=== PATIENT | female | born 1960 | race Caucasian/White ===

== ENCOUNTER 2019-11-07 08:10 | Outpatient (CLI) | payer BC ==
--- NOTE | 2019-11-07 12:42 | MMO ---
Bilateral MAMMO Bilat Screen [facility]. CLINICAL HISTORY: Patient is 59 years old and is seen for screening. The patient has no family history of breast cancer. The patient has no personal history of cancer. VIEWS: The views performed were: bilateral craniocaudal with tomosynthesis and bilateral mediolateral oblique with tomosynthesis. This study has been interpreted with the assistance of computer-aided detection. MAMMOGRAM FINDINGS: There are scattered fibroglandular densities. There is an area of architectural distortion seen in the sub-areolar region of the left breast. In the right breast, there are no suspicious masses, calcifications or areas of architectural distortion. IMPRESSION: AREA OF ARCHITECTURAL DISTORTION IN THE LEFT BREAST REQUIRES ADDITIONAL EVALUATION. SPOT COMPRESSION IS RECOMMENDED. AN ULTRASOUND EXAM IS RECOMMENDED. ADDITIONAL IMAGING. THE RESULTS OF THIS EXAM WERE SENT TO THE PATIENT. ACR BI-RADS Category 0 - Incomplete: Need additional imaging evaluation. [facility] will notify the patient of the need for additional imaging services. MAMMOGRAPHY NOTE: 1. A negative mammogram report should not delay a biopsy if a dominant of clinically suspicious mass is present. 2. Approximately 10% to 15% of breast cancers are not detected by mammography. 3. Adenosis and dense breasts may obscure an underlying neoplasm. Reported by: BOYD LIEBERMAN MD Electonically Signed: [id number]
== END 2019-11-07 08:11 | disposition home or self-care (01) ==
LOC: BICMAMMO 08:10
PROVIDERS: ATTEND Family Medicine Sports Medicine
DX: Z12.31 Encounter for screening mammogram for malignant neoplasm of breast (principal); R92.8 Other abnormal and inconclusive findings on diagnostic imaging of breast
CPT/HCPCS: 77063; 77067

== ENCOUNTER 2019-11-07 13:31 | Outpatient (CLI) | payer BC ==
--- NOTE | 2019-11-07 14:19 | MMO ---
Left Breast MAMMO Unilat Diag [facility] LT+ANNA. CLINICAL HISTORY: Patient is 59 years old and is seen for additional evaluation requested at current screening. The patient has no family history of breast cancer. The patient has no personal history of cancer. VIEWS: The views performed were: left craniocaudal with tomosynthesis; left mediolateral oblique with tomosynthesis; and left mediolateral with tomosynthesis. FILMS COMPARED: The present examination has been compared to a prior imaging study performed at [facility] on 11/07/2019. This study has been interpreted with the assistance of computer-aided detection. MAMMOGRAM FINDINGS: There are scattered fibroglandular densities. Additional views were performed. Finding persists and corresponds to a suspicious mass on US. IMPRESSION: FINDING IN THE LEFT BREAST IS HIGHLY SUGGESTIVE OF MALIGNANCY. BIOPSY IS RECOMMENDED. THE RESULTS OF THIS EXAM WERE SENT TO THE PATIENT. ACR BI-RADS Category 5 - Highly suggestive of malignancy - appropriate action should be taken D/W DR Cervantes over the phone at 1411 hrs. MAMMOGRAPHY NOTE: 1. A negative mammogram report should not delay a biopsy if a dominant of clinically suspicious mass is present. 2. Approximately 10% to 15% of breast cancers are not detected by mammography. 3. Adenosis and dense breasts may obscure an underlying neoplasm. Reported by: BOYD LIEBERMAN MD Electonically Signed: [id number]
--- NOTE | 2019-11-07 14:40 | ULT ---
LEFT BREAST ULTRASOUND: 11/07/19 HISTORY: Abnormal mammogram. FINDINGS: Correlation is made with the mammogram today. Sonographic evaluation of the retroareolar aspect of the left breast demonstrates a taller than wide hypoechoic irregular shadowing mass measuring 1.3 x 1.2 cm and corresponding to the finding on the ma mmogram. Sonographic evaluation of the left axilla demonstrated no lymphadenopathy. IMPRESSION: BIRADS 5: Highly Suggestive of Malignancy - Appropriate Action Should Be Taken Requires biopsy or surgical treatment. Ultrasound guided biopsy is recommended. Discussed over the telephone with Dr. Lyle Cervantes at 2:11 p.m. POS: OFF
== END 2019-11-07 13:32 | disposition home or self-care (01) ==
LOC: BICMAMMO 13:31
PROVIDERS: ATTEND Family Medicine Sports Medicine
DX: N63.10 Unspecified lump in the right breast, unspecified quadrant (principal)
CPT/HCPCS: G0279

== ENCOUNTER 2022-11-08 15:49 | Outpatient (CLI) | payer BC | END 2022-11-08 15:50 | disposition home or self-care (01) | LOC: SCSRAD 15:49 | PROVIDERS: ATTEND Family Medicine Sports Medicine | DX: R07.89 Other chest pain (principal) | CPT/HCPCS: 71046 ==